=== PATIENT | female | born 1985 | race American Indian/Alaskan Native ===

== ENCOUNTER 2018-04-04 00:55 | Emergency (ER) | payer SELFPAY ==
[2018-04-04 01:07] VITALS: BP 117/79
[2018-04-04 01:43] LABS: Amorphous Crystals,Urine Few; Bacteria,Urine 1+ /HPF (Negative); Bilirubin,Urine NEG (Negative); Blood,Urine NEG (Negative); Color,Urine Yellow (Yellow); Protein,Urine <15 mg/dL mg/dL (Negative)
[2018-04-04 01:45] LABS: Basophils % (Auto) 0.4 % (0.0-1.8); Eosinophils % (Auto) 0.1 % (0.0-4.3); Hematocrit 35.1 % (30.3-42.9); Hemoglobin 11.5 gm/dl (10.1-14.3); Lymphocytes # (Auto) 0.8 K/mm3 (1.2-5.4); Lymphocytes % (Auto) 10.6 % (13.4-35.0); Mean Corpuscular HGB Conc 33 % (30-34); Mean Corpuscular Volume 87 fl (79-97); Monocytes # (Auto) 0.5 K/mm3 (0.0-0.8); Monocytes % (Auto) 6.4 % (0.0-7.3); Platelet Count 197 K/mm3 (140-440); Red Blood Count 4.03 M/mm3 (3.65-5.03)
[2018-04-04 01:59] LABS: Alanine Aminotransferase 8 units/L (7-56); Albumin 4.4 g/dL (3.9-5); BUN/Creatinine Ratio 20; Blood Urea Nitrogen 12 mg/dL (7-17); Calcium 9.1 mg/dL (8.4-10.2); Hemolysis Index 6
[2018-04-04] MEDS ORDERED: PERCOCET 5/325 PO ONE (03:03)
[2018-04-04] MEDS ORDERED: ZOFRAN ODT PO ONE (03:04)
--- NOTE | 2018-04-04 03:06 | Emergency Department Report ---
ED Female HPI - General Chief complaint: Abdominal Pain Stated complaint: VOMITING/STOMACH PAIN Time Seen by Provider: 04/04/18 02:49 Source: patient Mode of arrival: Ambulatory Limitations: No Limitations - History of Present Illness Initial comments: 32-year-old -[place] female presents to the emergency room for lower abdominal pain with nausea and vomiting that started on the night. Patient reports that she take ibuprofen prior to arrival but still has pain. Patient does admit to dysuria. She also admits to going out to eat and have a family steak and cheese with shrimp and chicken and be. Patient reports that she vomited twice this has not vomited anymore. Patient reports she had nausea but that has resolved. Patient denies any diarrhea or constipation. MD Complaint: dysuria -: During the night Radiation: suprapubic Severity scale (0 -10): 10 Quality: cramping, stabbing Consistency: constant Improves with: none Worsens with: urination Are you Now?: No Associated Symptoms: abdominal pain, nausea/vomiting (resolved), dysuria. denies: vaginal discharge, vaginal bleeding, fever/chills, headaches, loss of appetite, hematuria, rash - Related Data Previous Rx's Medication Instructions Recorded Last Taken Type Nitrofurantoin Monohyd/M-Cryst 100 mg PO BID #14 capsule 04/04/18 Unknown Rx [Macrobid 100 mg Capsule] traMADol [Ultram 50 MG tab] 50 mg PO Q6HR PRN #8 tablet 04/04/18 Unknown Rx Allergies Allergy/AdvReac Type Severity Reaction Status Date / Time No Known Allergies Allergy Unverified 04/04/18 01:03 ED Review of Systems ROS: Stated complaint: VOMITING/STOMACH PAIN Other details as noted in HPI Comment: All other systems reviewed and negative Gastrointestinal: abdominal pain, nausea (resolved), vomiting (resolved) Genitourinary: dysuria ED Past Medical Hx - Past Medical History Previous Medical History?: No - Surgical History Past Surgical History?: Yes Additional Surgical History: c-sec, tubaligation - Social History Smoking Status: Never Smoker Substance Use Type: None - Medications Home Medications: Home Medications Medication Instructions Recorded Confirmed Last Taken Type Nitrofurantoin Monohyd/M-Cryst 100 mg PO BID #14 capsule 04/04/18 Unknown Rx [Macrobid 100 mg Capsule] traMADol [Ultram 50 MG tab] 50 mg PO Q6HR PRN #8 tablet 04/04/18 Unknown Rx ED Physical Exam - General Limitations: No Limitations General appearance: alert - ENT ENT exam: Present: mucous membranes moist - Neck Neck exam: Present: normal inspection - Respiratory Respiratory exam: Present: normal lung sounds bilaterally. Absent: respiratory distress - Cardiovascular Cardiovascular Exam: Present: regular rate, normal rhythm. Absent: systolic murmur, diastolic murmur, rubs, gallop - GI/Abdominal GI/Abdominal exam: Present: soft, tenderness (suprapubic and left lower quadrant). Absent: distended - Back Exam Back exam: Present: normal inspection - Neurological Exam Neurological exam: Present: alert, oriented X3 - Psychiatric Psychiatric exam: Present: normal affect, normal mood - Skin Skin exam: Present: warm, dry, intact, normal color. Absent: rash ED Course Vital Signs 04/04/18 01:03 Temperature 97.7 F Pulse Rate 72 Blood Pressure 117/79 O2 Sat by Pulse 100 Oximetry ED Medical Decision Making - Lab Data Result diagrams: 04/04/18 01:14 04/04/18 01:14 Labs 04/04/18 04/04/18 04/04/18 01:12 01:14 01:14 WBC 7.8 RBC 4.03 Hgb 11.5 Hct 35.1 MCV 87 MCH 29 MCHC 33 RDW 13.0 L Plt Count 197 Lymph % (Auto) 10.6 L Ocean % (Auto) 6.4 Eos % (Auto) 0.1 Baso % (Auto) 0.4 Lymph # 0.8 L Ocean # 0.5 Eos # 0.0 Baso # 0.0 Seg Neutrophils % 82.5 H Seg Neutrophils # 6.4 Sodium 142 Potassium 3.7 Chloride 105.0 Carbon Dioxide 27 Anion Gap 14 BUN 12 Creatinine 0.6 L Estimated GFR > 60 BUN/Creatinine Ratio 20 Glucose 90 Calcium 9.1 Total Bilirubin 0.20 AST 14 ALT 8 Alkaline Phosphatase 39 Total Protein 7.4 Albumin 4.4 Albumin/Globulin Ratio 1.5 HCG, Qual Urine Color Yellow Urine Turbidity Slightly-cloudy Urine pH 6.0 Ur Specific [place] 1.027 Urine Protein <15 mg/dl Urine Glucose (UA) Neg Urine Ketones Neg Urine Blood Neg Urine Nitrite Neg Urine Bilirubin Neg Urine Urobilinogen 4.0 Ur Leukocyte Esterase Sm Urine WBC (Auto) 10.0 H Urine RBC (Auto) 5.0 U Epithel Cells (Auto) < 1.0 Urine Bacteria (Auto) 1+ Amorphous Crystals Few 04/04/18 01:14 WBC RBC Hgb Hct MCV MCH MCHC RDW Plt Count Lymph % (Auto) Ocean % (Auto) Eos % (Auto) Baso % (Auto) Lymph # [place] # Eos # Baso # Seg Neutrophils % Seg Neutrophils # Sodium Potassium Chloride Carbon Dioxide Anion Gap BUN Creatinine Estimated GFR BUN/Creatinine Ratio Glucose Calcium Total Bilirubin AST ALT Alkaline Phosphatase Total Protein Albumin Albumin/Globulin Ratio HCG, Qual Negative Urine Color Urine Turbidity Urine pH Ur Specific [place] Urine Protein Urine Glucose (UA) Urine Ketones Urine Blood Urine Nitrite Urine Bilirubin Urine Urobilinogen Ur Leukocyte Esterase Urine WBC (Auto) Urine RBC (Auto) U Epithel Cells (Auto) Urine Bacteria (Auto) Amorphous Crystals - Medical Decision Making Patient has been evaluated by this provider in fast track. Percocet given for pain management Discussed with patient that her urine has a small UTI. I will treat patient with Macrobid 100 mg by mouth twice a day and instructed patient to continue drinking plenty of water and void after intercourse. Critical care attestation.: If time is entered above; I have spent that time in minutes in the direct care of this critically ill patient, excluding procedure time. ED Disposition Clinical Impression: Abdominal pain Qualifiers: Abdominal location: lower abdomen, unspecified Qualified Code(s): R10.30 - Lower abdominal pain, unspecified UTI (urinary tract infection) Qualifiers: Urinary tract infection type: site unspecified Hematuria presence: without hematuria Qualified Code(s): N39.0 - Urinary tract infection, site not specified Disposition: TO HOME OR SELFCARE Is pt being admited?: No Does the pt Need Aspirin: No Condition: Stable Instructions: Abdominal Pain (ED) Additional Instructions: Please complete antibiotics as prescribed. Pain medication as needed. Please follow-up with a primary care provider if his symptoms persist or gets worse. Prescriptions: Nitrofurantoin Monohyd/M-Cryst [Macrobid 100 mg Capsule] 100 mg PO BID #14 capsule traMADol [Ultram 50 MG tab] 50 mg PO Q6HR PRN #8 tablet PRN Reason: Pain Referrals: [facility] [Provider Group] - 3-5 Days Forms: Work/School Release Form(ED), Accompanied Note
== END 2018-04-04 03:33 | disposition home or self-care (01) ==
LOC: ED 00:55
DX: N39.0 Urinary tract infection, site not specified (principal); Z98.51 Tubal ligation status
CPT/HCPCS: 36415; 80053; 81001; 84703; 85025; 87086; 99283; Q0162